=== PATIENT | male | born 2000 | race Two or more races ===

== ENCOUNTER 2024-04-19 14:28 | Emergency (ER) | payer SELFPAY ==
[~2024-04-19] VITALS: Ht 172.7 cm; Wt 97.7 kg
--- NOTE | 2024-04-19 15:02 | ED.PDOC ---
SOB-HPI HPI Comments 24 y.o male with PMH of testicular, lung and colon cancer, PE, anemia and blood transfusions, presents to the ED for a chief complaint of SOB associated with hemoptysis that started one day ago. Patient reports having chemotherapy and radiation today, could not finish it due to SOB states now also had muscle pain throughout body. Patient reports he was dropping his daughter off today and symptoms worsened, and was unable to make it to the hospital he is treated at which is in [place]. Patient denies any chest pain, nausea, vomiting, fever, or chills. 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 ), PE Surgical History (Other): partial colon, fasciectomy, right lobectomy, Orchiectomy Family History Family History: Reviewed,noncontributory to illness Social History Smoker: Non-Smoker Alcohol: Denies ETOH Use Drugs: Denies Drug Use Lives In: Home Constitutional: denies: chills, diaphoresis, fatigue, fever, malaise, sweats, weakness, others EENTM: denies: blurred vision, double vision, ear bleeding, ear discharge, ear drainage, ear pain, ear ringing, eye pain, eye redness, hearing loss, mouth pain, mouth swelling, nasal discharge, nose bleeding, nose congestion, nose pain, photophobia, tearing, throat pain, throat swelling, voice changes, others Respiratory: reports: cough, hemoptysis, SOB at rest, shortness of breath; denies: orthopnea, SOB with excertion, stridor, wheezing, others Cardiovascular: reports: lightheadedness; denies: chest pain, dizzy spells, diaphoresis, Dyspnea on exertion, edema, irregular heart beat, left arm pain, palpitations, PND, syncope, others Gastrointestinal: denies: abdomen distended, abdominal pain, blood streaked bowels, constipated, diarrhea, dysphagia, difficulty swallowing, hematemesis, melena, nausea, poor appetite, poor fluid intake, rectal bleeding, rectal pain, vomiting, others Genitourinary: denies: burning, dysuria, flank pain, frequency, hematuria, incontinence, penile discharge, penile sore, pain, testicle pain, testicle swelling, urgency, others Neurological: denies: dizziness, fainting, headache, left sided numbness, left sided weakness, numbness, paresthesia, pre-existing deficit, right sided numbness, right sided weakness, seizure, speech problems, tingling, tremors, weakness, others Musculoskeletal: reports: muscle pain; denies: back pain, gout, joint pain, joint swelling, muscle stiffness, neck pain, others Integumetry: denies: bruises, change in color, change in hair/nails, dryness, laceration, lesions, lumps, rash, wounds, others Allergic/Immunocompromised: denies: Difficulty Healing, Frequent Infections, Hives, Itching, others Hematologic/Lymphatic: denies: anemia, blood clots, easy bleeding, easy bruising, swollen glands, others Endocrine: denies: excessive hunger, excessive sweating, excessive thirst, excessive urination, flushing, intolerance to cold, intolerance to heat, unexplained weight gain, unexplained weight loss, others Psychiatric: denies: anxiety, bipolar disorder, depression, hopeless, panic disorder, schizophrenia, sleepless, suicidal, others All Other Systems: Reviewed and Negative Physical Exam General Appearance: Mild Distress HEENT: Normal ENT Inspection, Pharynx Normal, TMs Normal Neck: Full Range of Motion, Non-Tender, Normal, Normal Inspection Respiratory: Chest Non-Tender, Lungs Clear, No Accessory Muscle Use, No Respiratory Distress, Normal Breath Sounds Cardiovascular: No Edema, No JVD, No Murmur, No Gallop, Normal Peripheral Pulses, Regular Rate/Rhythm Breast Exam: Deferred Gastrointestinal: No Organomegaly, Non Tender, No Pulsatile Mass, Normal Bowel Sounds, Soft Genitalia: Deferred Pelvic: Deferred Rectal: Deferred Extremities: No calf tenderness, Normal capillary refill, Normal inspection, Normal range of motion, Non-tender, No pedal edema Musculoskeletal : Apperance: Normal Neurologic: Alert, auxiliary plant operator II-XII nml as Tested, No Motor Deficits, Normal Affect, Normal Mood, No Sensory Deficits Cerebellar Function: Normal Reflexes: Normal Skin: Dry, Normal Color, Warm Lymphatic: No Adenopathy Was a procedure done? Was a procedure done?: No Differential Dx Differential Diagnosis: Asthma, Bronchitis, COPD, Hyperventilation, Pneumonia, Pneumothorax, Pulmonary Embolism, Respiratory Distress, URI X-Ray, Labs, Meds, VS Vital Signs Date Time Temp Pulse Resp B/P (MAP) Pulse Ox O2 Delivery O2 Flow Rate FiO2 04/19/24 19:57 100 16 96 Room Air* 0 21 04/19/24 19:57 98.2 100 16 119/71 (87) 97 98.2 04/19/24 16:30 120 20 134/74 04/19/24 15:19 120 16 150/85 04/19/24 14:45 122 04/19/24 14:41 98.2 123 18 146/91 (109) 99 Lab Test 04/19/24 18:53 Range/Units Sodium Level 142 136-145 mmol/L Potassium Level 3.7 3.5-5.1 mmol/L Chloride Level 108 H 98-107 mmol/L Carbon Dioxide Level 20 20-31 mmol/L Anion Gap 14 5-15 Blood Urea Nitrogen 20 9-23 mg/dL Creatinine 1.27 0.700-1.30 mg/dL Glomerular Filtration Rate Calc 80 >90 mL/min BUN/Creatinine Ratio 15.7 10.0-20.0 Serum Glucose 172 H 74-106 mg/dL Calcium Level 9.6 8.7-10.4 mg/dL Current Medications Medications (Trade) Dose Ordered Sig/Mita Route Start Time Stop Time Status Last Admin Hydromorphone HCl (Dilaudid Innjection) 1 mg ONCE ONCE IV 04/19/24 15:00 04/19/24 15:01 DC 04/19/24 15:19 Hydromorphone HCl (Dilaudid Injection) 1 mg ONCE ONCE IV 04/19/24 16:15 04/19/24 16:16 DC 04/19/24 16:30 Diphenhydramine HCl (Benadryl Injection) 25 mg ONCE ONCE IV 04/19/24 16:45 04/19/24 16:46 DC 04/19/24 16:36 XY CHEST TWO VIEWS ROUTINE IMPRESSION: RIGHT PERIHILAR OPACITY. The patient had Dilaudid 1 mg IV push which seemed to of leak through the PICC line The patient had a repeat dose of Dilaudid as well as Benadryl 25 mg IV push The chemistry panel is within normal limits The patient seems to have eloped from the department's The patient's chemistry panel is within normal limits At this time the patient stated that he is going to see his home health nurse Images Reviewed?: Images reviewed and evaluated by me Time of 1ST Reevaluation: 14:57 Reevaluation 1ST: Unchanged Patient Education/Counseling: Diagnosis, Treatment, Prognosis Family Education/Counseling: No Family Present Departure 1 Departure Time of Disposition: 20:01 Impression: Primary Impression: Acute chest pain Additional Impression: Left testicular cancer Qualified Codes: C62.92 - Malignant neoplasm of left testis, unspecified whether descended or undescended Disposition: 07 LEFT AWOL/ELOPED Condition: Fair Critical Care Note Critical Care Time?: No Stability Stability form required: No I personally scribed for HENRY AGUILAR MD ([email or web address]) on 04/19/24 at 15:02. Electronically submitted by Charo Aviles ([employer]). I personally scribed for HENRY AGUILAR MD ([email or web address]) on 04/19/24 at 18:57. Electronically submitted by Charo Aviles ([employer]). HENRY AGUILAR MD Apr 19, 2024 15:02
[2024-04-19] MEDS: HYDROMORPHONE HCL 1 MG/ML INJ IV ONE (15:19)
[2024-04-19] MEDS: HYDROmorphone HCL 2 MG/ML VL/or syr IV ONE (16:30)
[2024-04-19] MEDS: diphenhdrAMINE HCL 50 MG/1 ML VL IV ONE (16:36)
--- NOTE | 2024-04-19 18:11 | DVH ---
XY CHEST TWO VIEWS ROUTINE CLINICAL HISTORY: pain and sob COMPARISON: None TECHNIQUE: Frontal and lateral view of the chest was obtained FINDINGS: Lines and Tubes: None Lungs: Right perihilar opacity. Pleura: No effusion. No pneumothorax. Cardiomediastinal contours: Unremarkable Bones: No acute osseous abnormality. IMPRESSION: RIGHT PERIHILAR OPACITY.
[2024-04-19] MEDS ORDERED: HYDROcodone-ACET 10/325MG TAB PO ONE (19:15)
[2024-04-19 19:40] LABS: Potassium 3.7 mmol/L (3.5-5.1); Sodium 142 mmol/L (136-145)
[2024-04-19 19:41] LABS: Anion Gap 14 (5-15); Calcium 9.6 mg/dL (8.7-10.4); Carbon Dioxide 20 mmol/L (20-31)
[2024-04-19 19:46] LABS: BUN/Creatinine Ratio 15.7 (10.0-20.0); Blood Urea Nitrogen 20 mg/dL (9-23)
[2024-04-19 19:48] LABS: Chloride 108 mmol/L (98-107); Glucose 172 mg/dL (74-106)
[2024-04-19 19:57] VITALS: BP 119/71; PULSE 100; RESP 16; TEMP 98.2; O2SAT 96
--- NOTE | 2024-04-20 14:11 | ECG ---
[facility] Test Date: 2024-04-19 Test Time: 14:45:18 Pat Name: JUNIOR ABDUL Department: ER Room: Gender: M [employer]: GP : 2000 Requested By: HENRY AGUILAR Order Number: [id number] Reading MD: Ramon Osborn Measurements Intervals [place] Rate: 122 P: 57 NM: 114 QRS: 66 QRSD: 92 T: 51 QT: 310 QTc: 442 Interpretive Statements Sinus tachycardia Atrial premature complex Baseline wander in lead(s) I,II,aVR,V1,V2,V3,V4,V5,V6 Electronically Signed On 04-21-2024 18:19:02 PST by Ramon Osborn Please click the below link to view image of tracing.
== END 2024-04-19 20:25 | disposition left against medical advice (07) ==
LOC: ER 14:28
DX: R07.9 Chest pain, unspecified (principal); C62.92 Malignant neoplasm of left testis, unspecified whether descended or undescended; R06.02 Shortness of breath; R04.2 Hemoptysis; Z85.048 Personal history of other malignant neoplasm of rectum, rectosigmoid junction, and anus; Z86.718 Personal history of other venous thrombosis and embolism; Z90.79 Acquired absence of other genital organ(s)
CPT/HCPCS: 36415; 71046; 80048; 86850; 86900; 86901; 93005; 96374; 96375; 96376; 99285; J1170; J1171; J1200